=== PATIENT | female | born 1940 | race Caucasian/White ===

== ENCOUNTER 2017-05-01 00:17 | Emergency (ER) | payer MEDICARE, OTHER ==
[2017-05-01] VITALS (7 sets, daily range): BP systolic 137–174; BP diastolic 52–101; PULSE 62–88; RESP 16–27; O2SAT 95–100
[~2017-05-01 00:17] MED LIST: Aspirin-Expunged Drug, Do Not Renew! PO; CARV3.122 PO; HYDR-3797 PO; NAPR220C11 PO; OXYC1TAB24 PO
[2017-05-01] MEDS ORDERED: Succinylcholine Chloride 20 mg/mL 5 mL Inj ONE (00:18)
[2017-05-01] MEDS ORDERED: Rocuronium 10 mg/mL 5 mL Inj ONE (00:18)
--- NOTE | 2017-05-01 00:32 | ED.REPORT ---
HPI-Neurologic Deficit Date of Service May 01, 2017 ED Provider: Charles Stringer MD Pt is a 76 y.o. female with a hx of HTN who presents to the ED via EMS called in as a code stroke with a last known normal 30 minutes prior to arrival. Per family they heard a loud noise in the kitchen and found the patient on the ground. Family notes difficulty speaking, left-sided facial droop and weakness. Pt denies headache, chest pain, and abdominal pain. Hx is limited due to pt's current condition. Family denies pt taking blood thinners. Nursing Notes Stated Complaint: STROKE Nursing Notes Reviewed: Yes Allergies: Coded Allergies: Sulfa (Sulfonamide Antibiotics) (Verified Allergy, Severe, RASH, 05/01/17) morphine (Unverified Allergy, Unknown, 05/01/17) Uncoded Allergies: SULFA (Allergy, Severe, RASH, 10/20/16) Scheduled ([Aspirin-Expunged Drug, Do Not Renew!]) 325 MG TABLET 325 MG PO BID Carvedilol (Carvedilol) 3.125 Mg Tablet 3.125 MG PO BID Scheduled PRN Hydroxyzine Pamoate (HydrOXYzine Pamoate) 25 Mg Capsule 25 MG PO Q6H PRN PRN For Spasm and/or Restlessness oxyCODONE-Acetaminophen 5-325 mg (oxyCODONE-Acetaminophen 5-325 mg) 1 Each Tablet 1-2 TAB PO Q4-6H PRN PRN For Severe Pain Miscellaneous Medications Naproxen Sodium (Aleve) 220 Mg Capsule 220 MG PO General Time Seen by Provider: 00:33 Chief Complaint Falling Hx Obtained From: Other family..., EMS Unable to Obtain Hx: Patient condition, Mental status Arrived By: Ambulance Sudden in Onset?: Yes Onset Occurred: 16 - 30 minutes ago Symptom Duration: Since onset Risk Factors NIH Stroke Scale Level of Consciousness: Alert and responsive (0) Ask Month & Age: Both questions right (0) Open/Close Eyes/Hand Crew Leader Gluing: Performs both tasks (0) Horizontal EO Movements: None (0) Visual Rodas: Complete hemianopsia (2) Facial Palsy: Unil complete, up&low (3) Right Arm Motor Drift (10s): No drift 10 sec (0) Left Arm Motor Drift (10s): No effort, limb fails (3) Right Leg Motor Drift (5s): No drift 5 sec (0) Left Leg Motor Drift (5s): No effort, limb fails (3) Limb Ataxia FNF/Heel-Bob: Untestable (0) Sensation (Arms/Legs/Face): Complete sensory loss (2) Language Aphasia: No aphasia, normal (0) Dysarthria: Slurring intelligible (1) Extinction/Inattention: Inatt visual/tactile (1) NIHSS Score: 18 Past Medical History Past Medical History Reports: Hypertension Past Surgical History Bowel resection Knee Reports: Hysterectomy Review of Systems GLF Left-sided facial droop Unable to Obtain ROS Patient condition, Mental status Cardiovascular: Denies: Chest pain GI: Denies: Abdominal pain Neurologic: Reports: Change LOC, Unable to speak (disarthria), Weakness (Left- sided), Denies: Headache Psychiatric: Reports: Change mental status Complete sys rev & neg: except as marked. Physical Exam Initial Vital Signs Vital Signs (First) Date Time Temp Pulse Resp B/P Pulse Ox O2 Delivery O2 Flow Rate FiO2 05/01/17 00:41 62 20 155/93 98 Room Air 05/01/17 01:00 36.0 Initial VS: Reviewed Abdomen / GI: No distention Extremities: Vascular intact General/Constitutional: Awake (mildly agitated), Well hydrated, Not toxic appearing Behavior: Positive: Agitated Appearance / Presentation: Positive: Obese, Uncomfortable, Negative: Apparent trauma/injury Head / Eyes: Atraumatic, Normocephalic Respiratory / Chest: Atraumatic, Breath sounds NL, Breath sounds = bilat, No respiratory distress Cardiovascular: Heart rate NL, Regular rhythm, Heart sounds NL, Cap refill not delayed, Peripheral circulation NL Focal Weakness: Positive: Weakness diffuse L Dysarthric Left-sided sensation impaired Movement in left lower extremity Interpretation & Diagnostics Lab Results Interpretation Result Diagram: 05/01/17 0043 05/01/17 0043 Test 05/01/17 00:43 05/01/17 01:05 05/01/17 01:13 White Blood Count 6.1th/mm3 (3.8-10.1) Red Blood Count 3.56mil/mm3 (3.90-5.20) Hemoglobin 10.6g/dL (12.0-15.6) Hematocrit 32.0% (35.0-46.0) Mean Corpuscular Volume 89.9fL (81-100) Mean Corpuscular Hemoglobin 29.8pg (27.0-35.0) Mean Corpuscular Hemoglobin Concent 33.1% (32.0-37.0) Red Cell Distribution Width 13.1% (12.3-15.4) Platelet Count 158bil/L (150-400) Neutrophils (%) (Auto) 74.7% (40-74) Lymphocytes (%) (Auto) 16.6% (14-46) Monocytes (%) (Auto) 6.2% (4-12) Eosinophils (%) (Auto) 2.1% (0-5) Basophils (%) (Auto) 0.2% (0-3) Prothrombin Time 10.1sec (8.1-12.5) Prothromb Time International Ratio 0.95ratio Activated Partial Thromboplast Time 26.4sec (22.8-33.0) Sodium Level 143mEq/L (134-144) Potassium Level 3.9mEq/L (3.5-5.2) Chloride Level 105mEq/L (97-108) Carbon Dioxide Level 22mmol/L (18-29) Blood Urea Nitrogen 26mg/dL (8-27) Creatinine 0.57mg/dL (0.57-1.00) Estimat Glomerular Filtration Rate 149mL/min (>59) Glucose Level 120mg/dL (60-99) Calcium Level 9.3mg/dL (8.5-10.1) Total Bilirubin 0.3mg/dL (0.0-1.2) Aspartate Amino Transf (AST/SGOT) 16U/L (0-50) Alanine Aminotransferase (ALT/SGPT) 17U/L (0-32) Alkaline Phosphatase 102U/L (25-165) Troponin T < 0.010ug/L (0.0-0.011) Total Protein 6.9g/dL (6.4-8.4) Albumin 4.2g/dL (3.4-5.0) Hold Morse Top Tube Received (Received) Urine Color Yellow (YELLOW) Urine Appearance Clear (CLEAR,HAZY) Urine pH 7.5 (5.0-8.0) Urine Specific [place] 1.018 (1.003-1.035) Urine Protein Negativemg/dL (NEG,TRACE) Urine Glucose (UA) Negativemg/dL (NEGATIVE) Urine Ketones Negativemg/dL (NEGATIVE) Urine Occult Blood Negative (NEGATIVE) Urine Nitrite Negative (NEGATIVE) Urine Bilirubin Negative (NEGATIVE) Urine Urobilinogen Normalmg/dL (NORMAL) Urine Leukocyte Esterase Negative (NEGATIVE) Urine RBC 0-2/hpf (0-2) Urine WBC 0-5/hpf (0-5) Urine Epithelial Cells Occasional/hpf (NONE-MOD) Urine Crystals None seen (NONE SEEN) Urine Bacteria None/hpf (NONE-FEW) Urine Hyaline Casts None/lpf (NONE) Urine Granular Casts None seen (NONE SEEN) Urine Waxy Casts None seen (NONE SEEN) Urine Red Blood Cell Casts None seen (NONE SEEN) Urine White Blood Cell Casts None seen (NONE SEEN) Urine Mucus None seen (None Seen) Urine Trichomonas None seen (NONE SEEN) Urine Yeast None (NONE SEEN) Urine Culture Reflexed Not indicated ECG Interpretation Time: 00:45 Interpreted by: ED physician Normal ECG Interpretation: Normal rate (66), Normal sinus rhythm, No acute ischemic changes CT Head Interpretation IMPRESSION: Study limited by patient motion artifact. Right basal ganglia/periventricular white matter intraventricular hemorhage with mild mass effect. Intraventricular hemmorhage. Age related white matter changes. Radiologist: Emory Rodriguez MD Re-Eval/Medical Decision Med Decision/Clinical Course 76-year-old presents after a slumping fall in the kitchen apparently after experiencing a acute hemorrhagic stroke in the right basal ganglion. Family reveals that her biological son had an aneurysm requiring surgical intervention a few years ago. She is not on anticoagulants, antiplatelet agents, and has no prior history other than hypertension. She has significant left-sided deficit with a stroke score of eighteen on intake. She was presented to the [facility] stroke service and accepted for transfer. Blood pressure has trended downwards from 200/100 and the field to 130s over [address] reveals the right basal ganglion bleed, with some blood in the ventricle, and some mild effacement already obvious, two hours postevent. Minimal midline shift of 1.6 mm noted. She is transferred via helicopter to [facility] for further evaluation and management. She has been mildly agitated and anxious, and is responded to aliquots of Versed. Source of Hx: Old records Re-Evaluation/Progress : Time of Eval: 01:13 Re-Evaluation/Progress Note: Pt rechecked. Family is present. Discussed imaging with family and need for transfer, discussed plan for discharge. Pt's son states that he had an aneurysm several years ago. Consultation : Call Returned at: 01:29 Note: Consulted with [facility] Neurology, Counseled Regarding: Diagnosis, Lab results, Need for follow-up, Need for transfer Discharge & Departure Impression: Primary Impression: Cerebrovascular accident Laterality of affected vessel: right Disposition: Transfer, Acute Care Facility ([facility]) Receiving Hospital: [facility] via Air Transfer Accepted: Yes Transfer Accepted at: 01:29 Transfer Reason: Higher level of care Patient Status: Stable for transfer Discharge Condition All VS Reviewed: Yes Condition: Stable Referrals: Bennie Schultz MD (PCP) Crit Care Except Billable Proc Time Spent: 30-74 minutes (sixty minutes) Services Performed: Patient management by me, Time spent at bedside, Reviewing test results, Reviewing imaging, Discussing patient care, Documentation in record, Time with fam/surrogate Scribe Attestation Portions of this note were transcribed by Sabina Rivas. I, Dr. Stringer personally performed the history, physical exam and medical decision-making; I reviewed and confirmed the accuracy of the information in the transcribed note. Signed by: Moe Talbert, 05/01/17 and 0139 copies to: Bennie Schultz MD, Christopher W MD May 01, 2017 00:32 SABINA RIVAS May 01, 2017 00:38
[2017-05-01 00:50] LABS: BASOPHILS % (AUTO) 0.2 % (0-3); EOSINOPHILS % (AUTO) 2.1 % (0-5); MONOCYTES % (AUTO) 6.2 % (4-12); Mean Corpuscular Hemoglobin 29.8 pg (27.0-35.0); Mean Corpuscular Volume 89.9 fL (81-100); NEUTROPHILS % (AUTO) 74.7 % (40-74); Platelet Count 158 bil/L (150-400)
[2017-05-01 01:09] LABS: INR 0.95 ratio
[2017-05-01 01:29] LABS: TROPONIN T < 0.010 ug/L (0.0-0.011)
[2017-05-01 01:31] LABS: APPEARANCE,URINE CLEAR (CLEAR,HAZY); COLOR,URINE YELLOW (YELLOW); OCCULT BLOOD,URINE NEGATIVE (NEGATIVE); PH,URINE 7.5 (5.0-8.0); UROBILINOGEN,URINE NORMAL (NORMAL)
[2017-05-01] MEDS ORDERED: Midazolam 5 mg/mL 10 mL Inj IV PRN (02:05)
--- NOTE | 2017-05-01 09:00 | DRSVH ---
PROCEDURE: CT BRAIN (TPA) ([id number]) INDICATIONS: Stroke TECHNIQUE: Noncontrast 4.5 mm thick angled axial sections acquired from the foramen magnum to the vertex, with c oronal reformats. COMPARISON: None. FINDINGS: Image quality: Suboptimal due to severe motion artifact. There is acute blood seen within the right internal capsule/basal ganglia measuring up to 4.6 cm in A P dimension, and demonstrates mass effect on the lateral ventricles and approximately 1.6 mm on right to left midline shift. Additional acute blood present in the frontal horns of the left and right lat eral ventricle. Additional small amount of hemorrhage present within the third ventricle Basal cisterns appear grossly patent although limited evaluation due to motion artifact. Presumed chr onic white matter hypodensity suggestive of chronic microvascular ischemic disease Skull and face: Calvarium and visualized facial bones appear intact, without suspicious lesions. Sinuses: Visualized sinuses and mastoids are clear. IMPRESSION: Acute intraparenchymal and intraventricular hemorrhage as detailed above, centered in the right basal ganglia. Motion degraded examination. Clinical findings were given to Dr. Stringer in the emergency department 05/01/[address] Dilshad healy This study fulfills neurological imaging criteria for inclusion or exclusion of acute stroke therapie s based on available published neurological guidelines. Dictated by: Amilcar Harrsi M.D. on 05/01/2017 at 8:47 Approved by: Amilcar Harris M.D. on 05/01/2017 at 8:58
--- NOTE | 2017-05-01 10:36 | DRSVH ---
PROCEDURE: X-RAY CHEST ONE VIEW, PORTABLE ([id number]) INDICATIONS: tube placement post intubation TECHNIQUE: One view of the chest was acquired. COMPARISON: None. FINDINGS: Surgical changes and devices: ETT is in place tip projected over the level of the jaswinder. Nasogastri c tube also placed tip coiled within the gastric fundus. Lungs and pleura: Diffuse, widespread bilateral pulmonary interstitial and air space opacities are p resent. No pneumothorax. Of note, much of the peripheral right lung is not imaged. Mediastinum: Mediastinal contours appear normal. Heart size is normal. Bones and chest wall: No suspicious bony lesions. Overlying soft tissues appear unremarkable. IMPRESSION: 1. ETT tip at the level of the jaswinder and nasogastric tube in expected position. 2. Limited evaluation of the right lung demonstrating edema and/or diffuse bilateral pneumonia. Neelima elate clinically. Dictated by: Luis Eduardo aGrcia [facility] Interpreted: Amilcar Harris MD on 05/01/2017 at 10:33 Transcribed by: ANGEL on 05/01/2017 at 10:36 Approved by: Amilcar Harris M.D. on 05/01/2017 at 11:47
== END 2017-05-01 03:20 | disposition short-term general hospital (02) ==
LOC: EDBD → SED 00:17 → EDBD 00:17 → EDUNIT# 00:17 → SED 03:20
DX: I63.9 Cerebral infarction, unspecified (principal); I10 Essential (primary) hypertension; Z79.82 Long term (current) use of aspirin; Z79.891 Long term (current) use of opiate analgesic; Z79.1 Long term (current) use of non-steroidal anti-inflammatories (NSAID); Z88.2 Allergy status to sulfonamides; Z88.5 Allergy status to narcotic agent
CPT/HCPCS: 31500; 36415; 51702; 70450; 71010; 80053; 81000; 82948; 84484; 85025; 85610; 85730; 93005; 94799; 96374; 96376; 99291; J0330; J2250